=== PATIENT | female | born 1955 | race Caucasian/White ===

== ENCOUNTER 2016-08-01 10:57 | Emergency (ER) | payer SELFPAY ==
[~2016-08-01] VITALS: Wt 79.5 kg
[2016-08-01] MEDS ORDERED: morphine 4 MG/ML VIAL IV STA ×2 (15:26→18:56)
[2016-08-01] MEDS ORDERED: ONDANSETRON 4 MG INJ IV STA (15:26)
--- NOTE | 2016-08-01 15:44 | RADRPT ---
PROCEDURE: XR Chest. CLINICAL INDICATION: Cough and shortness of breath. TECHNIQUE: Single frontal view. COMPARISON: None. FINDINGS: There is extensive bilateral patchy pulmonary airspace and interstitial disease consistent with pulm onary edema or multifocal pneumonia. The heart size is normal. There is no pleural effusion. There is no pneumothorax. IMPRESSION: 1. Pulmonary edema or bilateral multifocal pneumonia. 2. Otherwise normal chest x-ray. RPTAT: QQ .Ayo Diane MD, MD Date Time Electronically viewed and signed by .Ayo Diane MD, MD on 08/01/2016 15:44 .R/
[2016-08-01 15:57] LABS: HEMATOCRIT 43.1 % (37.0-47.0); HEMOGLOBIN 14.6 g/dl (12.0-16.0); MEAN CORPUSCULAR HEMOGLOBIN 31.4 pg (29.0-33.0); MEAN CORPUSCULAR HGB CONC 33.8 g/dl (32.0-37.0); MEAN CORPUSCULAR VOLUME 92.8 fl (82.0-101.0); PLATELET COUNT 168 10^3/UL (140-440); RED BLOOD COUNT 4.64 10^6/ul (4.20-5.40); UNCORRECTED WBC 9.8 10^3/ul (4.8-10.8); WHITE BLOOD COUNT 9.8 10^3/ul (4.8-10.8)
[2016-08-01 15:58] LABS: CONDITION 1; LH ANALYZER COMMENTS 1
[2016-08-01] MEDS ORDERED: PRED20TA PO (16:01)
[2016-08-01] MEDS ORDERED: OMEP20CA16 PO (16:02)
[2016-08-01] MEDS ORDERED: MYCO500T13 PO (16:03)
[2016-08-01] MEDS ORDERED: LOSA50TA6 PO (16:03)
[2016-08-01] MEDS ORDERED: DOCU100C26 PO (16:05)
[2016-08-01] MEDS ORDERED: BACTDS PO (16:08)
[2016-08-01 16:12] LABS: INR 1.02; PROTIME 13.4 Sec (12.2-14.2)
[2016-08-01 16:13] LABS: PARTIAL THROMBOPLASTIN TIME 38.9 Sec (25.0-35.0)
[2016-08-01 16:20] LABS: CHLORIDE 103 mmol/L (97-110)
[2016-08-01 16:21] LABS: ALBUMIN 3.7 g/dl (3.3-4.9); POTASSIUM 4.3 mmol/L (3.5-5.1); SODIUM 146 mmol/L (135-144)
[2016-08-01 16:23] LABS: BILIRUBIN,INDIRECT 0.2 mg/dl (0-1.1); BILIRUBIN,TOTAL 0.2 mg/dl (0.2-1.3)
[2016-08-01 16:24] LABS: ALANINE AMINOTRANSFERASE 40 IU/L (13-69); ALBUMIN/GLOBULIN RATIO 1.23; ALKALINE PHOSPHATASE 70 IU/L (42-121); ANION GAP 14 (8-16); ASPARTATE AMINO TRANSFERASE 32 IU/L (15-46); BLOOD UREA NITROGEN 15 mg/dl (7-20); CALCIUM 8.8 mg/dl (8.4-10.2); CARBON DIOXIDE 33 mmol/L (21-31); GLUCOSE 111 mg/dl (70-220); TOTAL PROTEIN 6.7 g/dl (6.1-8.1)
[2016-08-01] MEDS ORDERED: LIDOCAINE/MYLANTA 40 ML BTL PO STA ×2 (17:01→20:08)
[2016-08-01 17:23] LABS: EOSINOPHILS # 0.1 10^3/ul (0.0-0.5); LYMPHOCYTES # 0.3 10^3/ul (0.8-2.9); MONOCYTE # 0.2 10^3/ul (0.3-0.9); NEUTROPHIL # 7.4 10^3/ul (1.6-7.5)
[2016-08-01 17:55] LABS: TROPONIN-I < 0.012 ng/ml (0.00-0.12)
[2016-08-01] MEDS ORDERED: MAG355OR14 PO (18:02)
--- NOTE | 2016-08-01 18:45 | ERD ---
ER Documentation Chief Complaint Date/Time DATE: 08/01/16 TIME: 18:38 Chief Complaint ABDOMINAL PAIN AND SOB SINCE YESTERDAY GETTING WORSE TODAY. NAUSEA ONLY HPI 61-year-old female with a history of chronic lung disease presenting with epigastric abdominal pain that started yesterday. The pain has been constant and waxing and waning in severity. Currently the pain is a 6 out of 10. She describes as an aching, bloating pain. Is not improved or worsened by anything specifically. She has associated nausea without vomiting. No associated fever , chills, constipation, diarrhea, hematochezia, or melena. She does take omeprazole daily as well as prednisone daily. ROS All systems reviewed and are negative except as per history of present illness. Medications Home Meds Active Scripts Mag Hydrox/Al Hydrox/Simeth (Maalox Advanced Suspension) 355 Ml Oral.susp, 20 ML PO BID Y for abdominal pain, #1 BOTTLE Prov:YO SANDOVAL MD 08/01/16 Reported Medications Sulfamethoxazole-Trimethoprim* (Bactrim* DS) 800-160 Mg Tab, 1 TAB PO MOWEFR@09 , #15 TAB 08/01/16 Docusate Sodium* (Doc-Q-Lace*) 100 Mg Capsule, 100 MG PO BID Y for CONSTIPATION , CAP 08/01/16 Losartan Potassium* (Losartan Potassium*) 50 Mg Tablet, 50 MG PO DAILY, TAB 08/01/16 Mycophenolate Mofetil* (Cellcept*) 500 Mg Tablet, 1000 MG PO BID, #120 TAB 08/01/16 Omeprazole* (Omeprazole*) 20 Mg Capsule.dr, 40 MG PO BID, #60 CAP 08/01/16 Prednisone* (Prednisone*) 20 Mg Tab, 40 MG PO DAILY, TAB 08/01/16 Allergies Allergies: Coded Allergies: tetracycline (Unverified Allergy, Unknown, 08/01/16) PMhx/Soc Medical and Surgical Hx: pt denies Surgical Hx Hx Respiratory Disorders: Yes (Chronic lung disease ) Hx Substance Use: No Hx Tobacco Use: No Smoking Status: Never smoker FmHx Family History: No diabetes Physical Exam Vitals Vital Signs Date Time Temp Pulse Resp B/P Pulse Ox O2 Delivery O2 Flow Rate FiO2 08/01/16 14:58 Nasal Cannula 2.0 08/01/16 11:07 98.6 75 24 149/70 98 Physical Exam Const: Well-developed, well-nourished, no apparent distress, nontoxic Head: Atraumatic Eyes: Normal Conjunctiva ENT: Normal External Ears, Nose and Mouth. Neck: Full range of motion. No meningismus. Resp: Clear to auscultation bilaterally Cardio: Regular rate and rhythm, no murmurs Abd: Soft, non tender, non distended. Normal bowel sounds Skin: No petechiae or rashes Back: No midline or flank tenderness Ext: No cyanosis, or edema Neur: Awake and alert Psych: Normal Mood and Affect Result Diagram: 08/01/16 1458 08/01/16 1458 Results 24 hrs Laboratory Tests Test 08/01/16 14:58 Activated Partial Thromboplast Time 38.9Sec Alanine Aminotransferase (ALT/SGPT) 40IU/L Albumin 3.7g/dl Albumin/Globulin Ratio 1.23 Alkaline Phosphatase 70IU/L Anion Gap 14 Aspartate Amino Transf (AST/SGOT) 32IU/L Band Neutrophils % 18.0% Basophils # 10^3/ul Basophils % % Blood Urea Nitrogen 15mg/dl Calcium Level 8.8mg/dl Carbon Dioxide Level 33mmol/L Chloride Level 103mmol/L Creatinine 0.70mg/dl Direct Bilirubin 0.00mg/dl Eosinophils # 0.110^3/ul Eosinophils % 1.0% Globulin 3.00g/dl Glucose Level 111mg/dl Hematocrit 43.1% Hemoglobin 14.6g/dl INR International Normalized Ratio 1.02 Indirect Bilirubin 0.2mg/dl Lipase 91U/L Lymphocytes # 0.310^3/ul Lymphocytes % 3.0% Mean Corpuscular Hemoglobin 31.4pg Mean Corpuscular Hemoglobin Concent 33.8g/dl Mean Corpuscular Volume 92.8fl Mean Platelet Volume 9.0fl Monocytes # 0.210^3/ul Monocytes % 2.0% Neutrophils # 7.410^3/ul Neutrophils % 76.0% Nucleated Red Blood Cells # 10^3/ul Nucleated Red Blood Cells % 0.0/100WBC Platelet Count 02153^3/UL Potassium Level 4.3mmol/L Prothrombin Time 13.4Sec Prothrombin Time Ratio 1.0 Red Blood Count 4.6410^6/ul Red Cell Distribution Width 14.0% Sodium Level 146mmol/L Total Bilirubin 0.2mg/dl Total Protein 6.7g/dl Troponin I < 0.012ng/ml White Blood Count 9.810^3/ul Current Medications Medications (Trade) Dose Ordered Sig/Melissa Route PRN Reason Start Time Stop Time Status Last Admin Dose Admin Morphine Sulfate (morphine) 4 mg ONCE STAT IV 08/01/16 15:26 08/01/16 15:27 DC 08/01/16 15:31 Ondansetron HCl (Zofran Inj) 4 mg ONCE STAT IV 08/01/16 15:26 08/01/16 15:27 DC 08/01/16 15:32 Miscellaneous Medication (Gi Cocktail (2)) 40 ml ONCE STAT PO 08/01/16 17:01 08/01/16 17:02 DC 08/01/16 17:56 Procedures/MDM Patient is presenting with acute epigastric pain since yesterday. She is afebrile with stable vitals. Differential includes but is not limited to biliary colic, biliary obstruction, acute cholecystitis, pancreatitis, hepatitis , lower lobe pneumonia, gastritis, colitis, cardiac pathology, aortic dissection , ureterolithiasis, pyelonephritis. Labs were ordered to evaluate for above and were unremarkable. Chest Xray ordered to evaluate for lower lobe pneumonia and showed patchy infiltrates, however the patient has chronic lung disease. Given her clinical picture I do not suspect pneumonia. Patient was given pain medication and a GI cocktail with significant improvement in her pain. I suspect the pain is secondary to steroid induced gastritis as the patient is on chronic steroids for her lung disease. She is already on omeprazole. At this moment the etiology of the abdominal pain is unknown. The patients vitals have been noted and are currently afebrile and hemodynamically stable. The workup, physical exam and observation period do not indicate a serious cause to the pain. I do not suspect aortic dissection or acute surgical abdomen at this time. The patients symptoms have improved while in the ED. Patient was able to tolerate PO. The current assessment has been explained to the patient including the fact that the etiology of the pain cannot be ruled out with certainty. Patient was advised that in the event this is early in the process of a more serious condition they may expect their symptoms to worsen and if so to return to the emergency department immediately. Patient was advised to follow up with primary care physician as soon as possible for re-evaluation within the next 1-2 days. All of the patients questions were answered. Patient verbalized understanding of plan and agrees. Advised to return to the ER for reevaluation within 12 hours if symptoms worsen. Departure Diagnosis: Primary Impression: Acute epigastric pain Condition: Stable Patient Instructions: Gastritis (Adult), Epigastric Pain (Uncertain Cause) Referrals: NO PRIMARY,CARE PHYSICIAN (PCP) Additional Instructions: Volver a la jostin de emergencia en las prximas 8 a 12 horas si el dolor est empeorando o si se desarrollan nuevos sntomas preocupantes. YO SANDOVAL MD Aug 01, 2016 18:45
[2016-08-01] MEDS ORDERED: HYDR-906 PO (20:10)
[2016-08-01 20:15] VITALS: BP 105/57; PULSE 63; RESP 16; TEMP 98.6
[2016-08-01] MEDS ORDERED: HYDROCODONE/APAP (5/325) TAB PO ONE (20:30)
== END 2016-08-01 20:14 | disposition home or self-care (01) ==
LOC: E/R 10:57
DX: R10.13 Epigastric pain (principal); R11.0 Nausea
CPT/HCPCS: 36415; 71010; 80053; 83690; 84484; 85025; 85610; 85730; 93005; 96374; 96375; 99284; J2270; J2405